=== PATIENT | female | born 1970 | race Caucasian/White ===

== ENCOUNTER → 2017-05-11 | Outpatient (CLI) | payer BC, OTHER | LOC: MC.RAD 10:40 | DX: Z12.31 Encounter for screening mammogram for malignant neoplasm of breast (principal) ==

== ENCOUNTER 2018-02-03 07:00 | Outpatient (RCR) | payer BC, OTHER | END 2018-03-08 | disposition home or self-care (01) | LOC: WSPT | DX: M25.512 Pain in left shoulder (principal) ==

== ENCOUNTER → 2018-04-16 | Outpatient (CLI) | payer BC, OTHER | LOC: MC.RAD 07:51 | DX: Z12.31 Encounter for screening mammogram for malignant neoplasm of breast (principal) ==

== ENCOUNTER → 2020-03-16 | Outpatient (CLI) | payer BC, OTHER | LOC: MC.RAD 01-26 09:00 | DX: Z00.00 Encounter for general adult medical examination without abnormal findings (principal); Z12.31 Encounter for screening mammogram for malignant neoplasm of breast; N64.89 Other specified disorders of breast ==

== ENCOUNTER → 2020-03-23 | Outpatient (CLI) | payer OTHER | LOC: MC.RAD 10:08 | DX: Z00.00 Encounter for general adult medical examination without abnormal findings (principal); N64.89 Other specified disorders of breast | CPT/HCPCS: G0279 ==

== ENCOUNTER → 2021-02-26 | Outpatient (CLI) | payer OTHER ==
[~2021-02-26] MED LIST: CALCIUM CITRATE PO; COLLAGEN C PO; LIVER CLEANSE PO; MULTIVITAMIN FO1 CAP PO; NATURE'S BLE1000 MCG PO; TERBINAFINE PO; UROCIT-K15 MEQ PO; VITAMIND3 5000 PO; [UNRECOGNIZED DRUG - OTHER] PO; [UNRECOGNIZED DRUG - OTHER] PO
== END ==
LOC: COL.RAD 12:45
DX: N83.202 Unspecified ovarian cyst, left side (principal); N85.8 Other specified noninflammatory disorders of uterus; E28.0 Estrogen excess; E34.9 Endocrine disorder, unspecified

== ENCOUNTER 2021-03-15 08:17 | Day surgery (SDC) | payer OTHER ==
[~2021-03-15] VITALS: Ht 162.6 cm; Wt 66.1 kg
[2021-03-15 09:06] VITALS: BP 97/58; PULSE 65; TEMP 97
[2021-03-15] MEDS ORDERED: TERBINAFINE PO (09:27)
[2021-03-15] MEDS ORDERED: [UNRECOGNIZED DRUG - OTHER] PO (09:28)
[2021-03-15] MEDS ORDERED: LIVER CLEANSE PO (09:28)
[2021-03-15] MEDS ORDERED: [UNRECOGNIZED DRUG - OTHER] PO (09:28)
[2021-03-15] MEDS ORDERED: VITAMIND3 5000 PO (09:29)
[2021-03-15] MEDS ORDERED: NATURE'S BLE1000 MCG PO (09:29)
[2021-03-15] MEDS ORDERED: COLLAGEN C PO (09:30)
[2021-03-15] MEDS ORDERED: MULTIVITAMIN FO1 CAP PO (09:30)
[2021-03-15] MEDS ORDERED: CALCIUM CITRATE PO (09:31)
[2021-03-15] MEDS ORDERED: UROCIT-K15 MEQ PO (09:32)
[2021-03-15 10:00] VITALS: BP 87/58; PULSE 71; TEMP 98
--- NOTE | 2021-03-15 10:00 | NUR ---
Pt to [facility] via cart from [place]. Pt drowsy,but awakens easlily and ambulates to recliner. Warm blankets provided. Pt denies need for food or drink at this time. Call light within reach.
[2021-03-15 10:15] VITALS: BP 85/55; PULSE 59
--- NOTE | 2021-03-15 10:15 | NUR ---
Pt continues to rest. Denies needs. Call light within reach.
[2021-03-15 10:30] VITALS: BP 91/60; PULSE 55
--- NOTE | 2021-03-15 10:30 | NUR ---
IV site discontinued with all parts intact. Discharge instructions reviewed. Pt voices understanding. Pt up to dress.
--- NOTE | 2021-03-15 10:45 | NUR ---
Pt escorted to private car via wheel chair. Pt accompanied home by her .
== END 2021-03-15 10:45 | disposition home or self-care (01) ==
LOC: SDCO 08:17
DX: Z12.11 Encounter for screening for malignant neoplasm of colon (principal); Z20.822 Contact with and (suspected) exposure to COVID-19
CPT/HCPCS: J2704; J7120

== ENCOUNTER → 2021-03-22 | Outpatient (CLI) | payer OTHER | LOC: MC.RAD 08:41 | DX: Z12.31 Encounter for screening mammogram for malignant neoplasm of breast (principal) ==

== ENCOUNTER → 2022-01-09 | Outpatient (CLI) | payer OTHER | LOC: COL.RAD 01-07 11:15 | DX: R59.9 Enlarged lymph nodes, unspecified (principal) ==